=== PATIENT | female | born 1965 | race Caucasian/White ===

== ENCOUNTER → 2016-04-13 | Outpatient (CLI) | payer BC ==
--- NOTE | 2016-04-13 13:08 | DIAGNOSTIC IMAGING REPORT ---
CHEST 2 VIEWS ROUTINE HISTORY: Fever. Cough. COMPARISON: Chest 03/09/2015. FINDINGS: No pleural effusions. No pneumothorax. The heart is normal in size. There is a consolidative opacity within the left lower lobe. This is new from the prior study. The right lung appears clear. IMPRESSION: Left lower lobe consolidation consistent with a pneumonia. Recommend follow-up to resolution. Electronically signed by: Jeremías Mahan M.D. 04/13/2016 1:06 PM Dictated Date/Time: 04/13/2016 1:05 PM
== END | disposition home or self-care (01) ==
LOC: C.RAD1850 12:13
PROVIDERS: ATTEND Family Medicine
DX: J06.9 Acute upper respiratory infection, unspecified (principal); R50.9 Fever, unspecified

== ENCOUNTER → 2017-02-14 | Outpatient (CLI) | payer BC ==
[2017-02-14 09:55] LABS: PREG INTERNAL NEGATIVE QC NEG CLEAR BACKGROUND; PREG INTERNAL POSITIVE QC POS CONTROL LINE
== END | disposition home or self-care (01) ==
LOC: C.LAB1850 08:43
PROVIDERS: ATTEND Physician Assistant
DX: Z30.431 Encounter for routine checking of intrauterine contraceptive device (principal)

== ENCOUNTER 2017-05-02 07:00 | Emergency (ER) | payer BC, OTHER ==
[2017-05-02 07:04] VITALS: TEMP 36.8; Ht 162.6 cm
[2017-05-02] MEDS ORDERED: MoRPHine SULFATE 10 MG/ML CARP/VIAL IM STA (07:20)
[2017-05-02] MEDS ORDERED: ONDANSETRON 4MG OD TAB PO STA (07:21)
--- NOTE | 2017-05-02 08:15 | DIAGNOSTIC IMAGING REPORT ---
L-SPINE MIN 4 VIEWS ROUTINE CLINICAL HISTORY: Low back pain with radicular pain down R leg COMPARISON: Lumbar spine radiographs May 16, 2016. FINDINGS: Cholecystectomy clips are incidentally noted. Alignment of the lumbar spine is anatomic. Vertebral body heights are maintained. There is no fracture or suspicious lesion. There is minimal disc space narrowing at L5-S1. There is mild multilevel osteophytosis. Sacroiliac joints are intact. Intrauterine device is noted. IMPRESSION: 1. No lumbar spine fracture or subluxation. 2. Minimal disc space narrowing at L5-S1 with mild multilevel osteophytosis. Electronically signed by: Turner Weaver M.D. 05/02/2017 8:13 AM Dictated Date/Time: 05/02/2017 7:59 AM
[2017-05-02] MEDS ORDERED: CYCL5TAB PO (08:35)
[2017-05-02] MEDS ORDERED: OXYC1TAB3 PO (08:35)
--- NOTE | 2017-05-02 08:36 | EMERGENCY ROOM VISIT NOTE ---
ED Visit Note First contact with patient: 07:10 CHIEF COMPLAINT: "Back pain". HISTORY OF PRESENT ILLNESS: This 52 year old female patient presents to the emergency department via private vehicle complaining of pain in the low back which began on Tuesday and worse when work up Tuesday and today. The pain was gradual in onset, is now constant and worse with movement. The patient notes the pain as sharp and a 9/10. The patient has taken prednisone and prescribed gabapentin from the walk in relief of the pain. The patient denies any loss of control of their bowel or bladder functions. There has been no leg numbness or weakness, and no change in sensation. No nausea or vomiting or abdominal pain. No chest pain or shortness of breath. The patient has no had prior back injuries. No dysuria or increased urinary frequency. REVIEW OF SYSTEMS: A review of systems was performed with positives and pertinent negatives listed in the history of present illness. All other systems were reviewed and are negative. ALLERGIES: Sulfa MEDICATIONS: Noted below PMH: no pertinent SOCIAL HISTORY: Pt. lives locally with family PHYSICAL EXAM: VITALS: Vitals are noted on the nurse's note and reviewed by myself. Vital signs stable. GENERAL: 52 year old female appearing her stated age, in no acute distress, nondiaphoretic, well-developed well-nourished. SKIN: The skin was without rashes, erythema, edema, or bruising. Capillary refill less than 2 seconds. NECK: Supple without nuchal rigidity. No cervical spine tenderness. No paraspinous muscle tenderness. HEART: Regular rate and rhythm without murmurs gallops or rubs. LUNGS: Clear to auscultation bilaterally without wheezes, rales or rhonchi. ABDOMEN: Positive bowel sounds x 4. Normal tympanic percussion. Soft, nontender, without masses or organomegaly. Mauricio sign negative. MUSCULOSKELETAL: No muscle atrophy, erythema, or edema noted of the back. There is no tenderness over the lumbar spinous processes. There is positive tenderness over the paraspinous muscles in the lumbar spine. Lumbar muscle spasms present. NEURO: Patient was alert and oriented to person place and time. She is neurovascularly intact in the lower extremities. IMAGING: L-SPINE MIN 4 VIEWS ROUTINE CLINICAL HISTORY: Low back pain with radicular pain down R leg COMPARISON: Lumbar spine radiographs May 16, 2016. FINDINGS: Cholecystectomy clips are incidentally noted. Alignment of the lumbar spine is anatomic. Vertebral body heights are maintained. There is no fracture or suspicious lesion. There is minimal disc space narrowing at L5-S1. There is mild multilevel osteophytosis. Sacroiliac joints are intact. Intrauterine device is noted. IMPRESSION: 1. No lumbar spine fracture or subluxation. 2. Minimal disc space narrowing at L5-S1 with mild multilevel osteophytosis. Electronically signed by: Turner Weaver M.D. 05/02/2017 8:13 AM Dictated Date/Time: 05/02/2017 7:59 AM EMERGENCY DEPARTMENT COURSE: Patient was seen and evaluated as above. She presents today with low back pain. She is nontoxic on exam. There is no history of trauma. X-ray was obtained and reveals at L5-S1 there is little bit of narrowing, otherwise negative. I suspect she likely has lumbar strain with radiculopathy. I informed her to stop the gabapentin of which she has had 1 dose of. No cauda equina. She will continue the prednisone, and use a muscle relaxer and pain medication. No red flags in the [place] drug monitoring. In evaluation treatment this patient following differential diagnoses were entertained: Fracture, dislocation, strain, among others. Problem List Surgical Problems: (1) History of cholecystectomy Status: Resolved Current/Historical Medications Scheduled Cyclobenzaprine Hcl (Flexeril), 5 MG PO TID Scheduled PRN Oxycodone Ir (Roxicodone Ir), 1-2 TAB PO Q4H PRN for Pain Allergies Coded Allergies: Sulfa Antibiotics (Unverified Allergy, Intermediate, HIVES, 05/02/17) Vital Signs Date Time Temp Pulse Resp B/P (MAP) Pulse Ox O2 Delivery O2 Flow Rate FiO2 05/02/17 08:50 64 18 137/87 97 05/02/17 07:04 36.8 82 20 142/95 98 Room Air Medications Administered Medications (Trade) Dose Ordered Sig/Monisha Route Start Time Stop Time Status Last Admin Dose Admin Morphine Sulfate (MoRPHine SULFATE INJ) 10 mg NOW STAT IM 05/02/17 07:20 05/02/17 07:21 DC 05/02/17 07:28 10 MG Ondansetron HCl (Zofran Odt) 4 mg NOW STAT PO 05/02/17 07:21 05/02/17 07:22 DC 05/02/17 07:28 4 MG Departure Information Impression Primary Impression: Lumbar radicular pain Dispostion Home / Self-Care Condition GOOD Prescriptions Oxycodone Ir (Roxicodone Ir) 5 Mg Tab 1-2 TAB PO Q4H Y for Pain, #18 TAB For Initial Treatment Prov: Jason Reno PA-C 05/02/17 Cyclobenzaprine Hcl (FLEXERIL) 5 Mg Tab 5 MG PO TID for 7 Days, #21 TAB PRN Prov: Jason Reno PA-C 05/02/17 Referrals Tammie Pulido D.O. (PCP) Patient Instructions My [facility] Additional Instructions You have been treated in the Emergency Department for Back Pain. You have received pain medicine in the emergency department which impairs your ability to operate a vehicle. It is illegal for you to drive after receiving these medicines. You have been prescribed Oyx IR to be used for pain control. This is a narcotic medication. You cannot drive or consume alcohol while on this medicine. This medicine should only be used for pain that cannot be controlled with over-the- counter pain medicines. You have been prescribed Flexeril (cyclobenzaprine) 1-2 tabs orally, three times per day. Do NOT exceed 30 mg (6 tabs) per day. Take your first dose at bedtime as it can make you drowsy. Always take all medications as prescribed. For pain control, you can use the following [id number] medicines (if >12 yo): - Regular strength (325mg/tab) Tylenol (acetaminophen) 2 tabs every 4-6 hours as needed. Do not exceed 12 tablets in a 24 hour period. Avoid taking more than 3 grams (3000 mg) of Tylenol per day. This includes any other sources of acetaminophen you may take on a regular basis. - Regular strength (200 mg/tab) Advil (ibuprofen) 1-2 tabs every 4-6 hours as needed. Do not exceed a dose of 3200 mg per day. If this is an acute injury, ice can be applied to the area of pain for the first 3 days to help decrease pain and inflammation. After the first 3 days, a heating pad can be used over the area for continued soothing relief. You should schedule a follow-up appointment in 2-3 days with your Primary Care Provider for further evaluation and treatment of your back pain. Return to the Emergency Department if your current symptoms worsen despite treatment course outlined above, or if you develop any of the following symptoms : intractable pain despite aforementioned treatment course, loss of control of your bowel or bladder, numbness or tingling in your groin, or development of a fever.
[2017-05-02 08:50] VITALS: BP 137/87; PULSE 64; O2SAT 97
== END 2017-05-02 08:50 | disposition home or self-care (01) ==
LOC: C.EDB 07:01
DX: M54.16 Radiculopathy, lumbar region (principal)

== ENCOUNTER 2017-05-06 15:05 | Emergency (ER) | payer OTHER ==
[~2017-05-06] VITALS: Ht 162.6 cm; Wt 82.0 kg
[~2017-05-06 15:05] MED LIST: CYCL5TAB PO; OXYC1TAB3 PO
[2017-05-06 15:17] VITALS: TEMP 36.7; Ht 162.6 cm; Wt 82.0 kg
[2017-05-06] MEDS ORDERED: OXYCODONE HCL IR 5 MG TAB (IMMEDIATE RELEASE) PO STA (15:38)
--- NOTE | 2017-05-06 17:11 | DIAGNOSTIC IMAGING REPORT ---
LUMBAR SPINE W/O CONTRAST CLINICAL HISTORY: 52 years-old Female presenting with EVAL LOW BACK PAIN, right leg numbness, no history of injury, surgery, or cancer. TECHNIQUE: Multisequence, multiplanar MR imaging of the lumbar spine was performed without the use of intravenous contrast. IV contrast: None. COMPARISON: Correlation made to plain radiographs of the lumbar spine from 05/02/2017. FINDINGS: Localizer images: Unremarkable. Normal lumbar lordosis. Vertebral bodies maintain normal height and alignment. T1 hyperintense, T2 hyperintense, fat-containing lesion in the L2 vertebral body consistent with benign hemangioma. Endplate edema noted at L5-S1 (Modic type I changes) associated with mild disc bulge at L5-S1. No significant abnormal fluid signal intensity within the L5-S1 disc space to suggest discitis. Disc bulge at this level results in mild bilateral neural foraminal narrowing without evidence of mass effect on the exiting L5 nerve roots. However, a slightly greater right paracentral protrusion at this level results in mass effect on the transiting right S1 nerve root. Remainder of the discs demonstrate mild desiccation at L4-5 and L1-2. Minimal disc bulge evident at L1-2 and L2-3 without significant result. No neural foraminal or spinal canal narrowing at any other level besides L5-S1. Spinal cord ends in good position at the inferior endplate of L1. Cauda equina normal in morphology. Paraspinal soft tissues within normal limits. IMPRESSION: 1. Disc bulge with degenerative related endplate edema at L5-S1. Mild bilateral neural foraminal narrowing results. More focal right paracentral disc protrusion at L5-S1 results in mass effect on the transiting right S1 nerve root, which could account for the patient's symptomatology. Electronically signed by: Domingo Christianson M.D. 05/06/2017 5:09 PM Dictated Date/Time: 05/06/2017 5:04 PM
[2017-05-06] MEDS ORDERED: OXYC1TAB3 PO (18:04)
[2017-05-06] MEDS ORDERED: CYCL10TA6 PO (18:04)
[2017-05-06] MEDS ORDERED: METH4PAK PO (18:04)
--- NOTE | 2017-05-06 18:07 | EMERGENCY ROOM VISIT NOTE ---
ED Visit Note First contact with patient: 15:18 CHIEF COMPLAINT: Right-sided back pain radiating to the right leg times one week HISTORY OF PRESENT ILLNESS: Patient is a generally healthy 52-year-old white female who returns to the emergency department for ongoing right low back pain radiating into the right leg. She was seen here 4 days ago for similar complaints. Patient reports that she developed low back pain one week ago. She was seen at the [facility] walk-in clinic on Tuesday the , and was prescribed prednisone and gabapentin. She presented here to the emergency department on Tuesday the with increasing pain. She had lumbar spine x-rays performed which showed some mild disc space narrowing. The gabapentin was discontinued, she was encouraged to finish the course of steroids and was placed on Flexeril and oxycodone for pain. The patient reports that she has been taking the medications as prescribed. She has finished the prednisone. She states that the oxycodone and Flexeril helps slightly with the pain, but mostly sleeping make her tired which does help her to sleep. She has also been using ibuprofen. She has been to the chiropractor 3 times this week. She states that she had some minor adjustment, and was instructed on some exercises, and her pain has improved slightly, however she has subsequently developed numbness in the entire right leg, that extends into the vaginal area, and she reports that she has lost control of her bladder "a couple of times this week." She states that the numbness spares her rectal area , and she has not had any fecal incontinence. She states that while at the chiropractor today and performing the exercises, she had the urge to urinate. Given this, the chiropractor referred her to the emergency department. She denies any dysuria, frequency or urgency. No fever or chills. No abdominal pain. She denies any prior history of back issues. REVIEW OF SYSTEMS: Review of systems as per HPI. All other systems reviewed were negative. 10 systems reviewed. PMH: Electronic medical records are reviewed and summarized as above/below. See Problem List. SOCIAL HISTORY: Patient lives at home with family. She is employed. Nonsmoker. PHYSICAL EXAM: Vital Signs: Reviewed Nurse's notes. CONSTITUTIONAL: Patient is a pleasant, well-appearing 62-year-old white female who is awake and alert and in mild distress due to her stated complaint. There is moderate discomfort with position changes. CARDIOVASCULAR: Regular rate and rhythm, with normal S1 and S2, no murmur or gallop or rub is heard. No carotid bruits auscultated. No JVD. Peripheral pulses easily palpable. RESPIRATORY: Breath sounds equal and clear to auscultation without wheezes, rales, or rhonchi heard. Full and equal chest expansion without accessory muscle use or retractions. ABDOMEN: Bowel sounds are present. Abdomen is soft, nontender and nondistended. INTEGUMENTARY: No lesions or rash, normal skin turgor. LYMPH: No lymphadenopathy. SPINE: Examination of the patient's back does not demonstrate any ecchymosis, abrasions or outward signs of trauma. No erythema, increased warmth or induration. There is no midline discomfort to palpation over the lumbar spinous processes, no paraspinous muscle tenderness or spasm. There is no pain over the SI joint or the sciatic notch. She has increased pain with range of motion including rotation and flexion. EXTREMITIES: Leg lengths are symmetrical. Negative logroll bilaterally. Normal strength including dorsi-flexion and plantar flexion of the great toes and ankles and flexion and extension of the knees and flexion of the hips. Positive right-sided straight leg raise. Lower extremity DTRs are equal and symmetrical bilaterally. Distal pulses are easily palpable. Sensation light touch is diminished over the right lower extremity. EMERGENCY DEPARTMENT COURSE: The patient was seen and evaluated as above. Her old records were reviewed including her lumbar spine x-rays from earlier this week. She was medicated with oxycodone 10 mg orally. Urinalysis was obtained and was unremarkable. Lumbar spine MRI was performed, findings are as noted below. Patient was reviewed with attending physician. I was able to review the patient and her MRI findings with Dr. Sanders, who recommended additional steroids, and gabapentin 300 mg 3 times a day. He will see the patient in follow-up on Tuesday. Treatment plan was discussed with the patient. She had previously been prescribed gabapentin, but reports that she was reluctant to resume this medication and reports that she threw away the prescription that she had been given from the family physician. She is agreeable to additional steroids. She was also provided a prescription for more Flexeril and oxycodone until she can be evaluated by spine surgery. She was educated on the worrisome signs or symptoms for which she should return to the emergency department. She is discharged to home with her driving in good condition. She rated her pain a 3/10 at discharge. MDM: Patient presents to the emergency department for evaluation of right low back pain with radicular symptoms into the right lower leg including numbness. She also does report a few episodes of urinary incontinence, however her exam is not consistent with acute cord compression or cauda equina at this time. She does have a disc herniation involving the S1 nerve root on the right, consistent with her symptoms differential diagnoses also entertained included epidural abscess, hematoma, UTI, pyelonephritis, renal colic, among others. Medication reconciliation: I attest that I have personally reviewed the patient' s current medication list. Blood pressure screening : Patient was found to have normal blood pressure on screening and does not require follow-up. Patient was reviewed in the [facility] Prescription Drug Monitoring Program, and there were no red flags noted. LUMBAR SPINE W/O CONTRAST CLINICAL HISTORY: 52 years-old Female presenting with EVAL LOW BACK PAIN, right leg numbness, no history of injury, surgery, or cancer. TECHNIQUE: Multisequence, multiplanar MR imaging of the lumbar spine was performed without the use of intravenous contrast. IV contrast: None. COMPARISON: Correlation made to plain radiographs of the lumbar spine from 05/02/2017. FINDINGS: Localizer images: Unremarkable. Normal lumbar lordosis. Vertebral bodies maintain normal height and alignment. T1 hyperintense, T2 hyperintense, fat-containing lesion in the L2 vertebral body consistent with benign hemangioma. Endplate edema noted at L5-S1 (Modic type I changes) associated with mild disc bulge at L5-S1. No significant abnormal fluid signal intensity within the L5-S1 disc space to suggest discitis. Disc bulge at this level results in mild bilateral neural foraminal narrowing without evidence of mass effect on the exiting L5 nerve roots. However, a slightly greater right paracentral protrusion at this level results in mass effect on the transiting right S1 nerve root. Remainder of the discs demonstrate mild desiccation at L4-5 and L1-2. Minimal disc bulge evident at L1-2 and L2-3 without significant result. No neural foraminal or spinal canal narrowing at any other level besides L5-S1. Spinal cord ends in good position at the inferior endplate of L1. Cauda equina normal in morphology. Paraspinal soft tissues within normal limits. IMPRESSION: 1. Disc bulge with degenerative related endplate edema at L5-S1. Mild bilateral neural foraminal narrowing results. More focal right paracentral disc protrusion at L5-S1 results in mass effect on the transiting right S1 nerve root, which could account for the patient's symptomatology. Problem List Medical Problems: (1) Acute diverticulitis Status: Resolved (2) Diverticulitis Status: Resolved (3) Lumbar radicular pain Status: Resolved Surgical Problems: (1) History of cholecystectomy Status: Resolved Current/Historical Medications Scheduled Cyclobenzaprine Hcl (Flexeril), 5 MG PO TID Methylprednisolone (Medrol Dosepak), 0 PO DAILY Scheduled PRN Cyclobenzaprine Hcl (Flexeril), 10 MG PO TID PRN for Muscle Spasms Oxycodone Immediate Rel Tab (Roxicodone Ir), 1-2 TAB PO Q4H PRN for Severe Pain Oxycodone Ir (Roxicodone Ir), 1-2 TAB PO Q4H PRN for Pain Allergies Coded Allergies: Sulfa Antibiotics (Unverified Allergy, Intermediate, HIVES, 05/02/17) Vital Signs Date Time Temp Pulse Resp B/P (MAP) Pulse Ox O2 Delivery O2 Flow Rate FiO2 05/06/17 18:18 89 18 141/79 98 05/06/17 17:02 66 16 119/88 96 Room Air 05/06/17 15:17 36.7 79 16 135/80 99 Room Air Laboratory Results Test 05/06/17 16:32 Urine Color YELLOW Urine Appearance CLEAR (CLEAR) Urine pH 5.0 (4.5-7.5) Urine Specific [place] 1.024 (1.000-1.030) Urine Protein NEG (NEG) Urine Glucose (UA) NEG (NEG) Urine Ketones TRACE (NEG) Urine Occult Blood NEG (NEG) Urine Nitrite NEG (NEG) Urine Bilirubin NEG (NEG) Urine Urobilinogen NEG (NEG) Urine Leukocyte Esterase NEG (NEG) Medications Administered Medications (Trade) Dose Ordered Sig/Monisha Route Start Time Stop Time Status Last Admin Dose Admin Oxycodone HCl (Roxicodone Immediate Rel Tab) 10 mg NOW STAT PO 05/06/17 15:38 05/06/17 15:39 DC 05/06/17 15:51 10 MG Departure Information Impression Primary Impression: Lumbar disc herniation with radiculopathy Prescriptions Oxycodone Immediate Rel Tab (ROXICODONE IR) 5 Mg Tab 1-2 TAB PO Q4H Y for Severe Pain, #30 TAB For Initial Treatment Prov: Kayla Saavedra PA 05/06/17 Cyclobenzaprine Hcl (FLEXERIL) 10 Mg Tab 10 MG PO TID Y for Muscle Spasms, #30 TAB Prov: Kayla Saavdera PA 05/06/17 Methylprednisolone (MEDROL DOSEPAK) 4 Mg Chong 0 PO DAILY, #1 PKT Once daily as directed. Prov: Kayla Saavedra PA 05/06/17 Referrals Tammie Pulido,GiovannaOGucci (PCP) Christiano Sanders, DO Patient Instructions My [facility] Additional Instructions DO NOT drive, drink alcohol, operate machinery, or perform dangerous activities today. You were given medications in the ER that can affect your ability to safely function or operate a vehicle. Medrol Dosepak: Once daily until the prescription is finished. It is best to take this earlier in the day as some patients note occasional difficulty falling asleep when taken in the late evening. Oxycodone (OxyIR) 5mg: Take 1-2 pills every four hours for breakthrough pain. Avoid alcohol, operating machinery or dangerous equipment, working on ladders or roofs, DRIVING, or situations where being under the influence may be dangerous. It is recommended to use an cvsx-com-adyddmt stool softener such as Colace, 100mg twice daily while taking this medication to avoid constipation. Cyclobenzaprine (Flexeril) 10 mg: Take 1 pills 3 times daily as needed for muscle spasms.. Avoid alcohol, operating machinery or dangerous equipment, working on ladders or roofs, DRIVING, or situations where being under the influence may be dangerous. Acetaminophen(Tylenol) may be used for fever or pain. Use 1000mg every six hours as needed. Avoid using more than 3000mg in a 24 hour period. This medication can be taken if you need to drive, work, or perform activities which may be dangerous when taking narcotic pain medication. Rest and avoid heavy lifting or strenuous activities until seen by Dr. Sanders. Continue current medications. Return to the ER immediately for any numbness, tingling, severe pain, loss of control of your bowels or bladder, inability to walk, or as needed. Follow up with Dr. Sanders on Tuesday, 05/09 at 10am. Please call his office to reschedule if you are unable to make this appointment.
[2017-05-06 18:18] VITALS: BP 141/79; PULSE 89; O2SAT 98
== END 2017-05-06 18:20 | disposition home or self-care (01) ==
LOC: C.EDB 15:07 → C.EDA 18:20
DX: M51.16 Intervertebral disc disorders with radiculopathy, lumbar region (principal)

== ENCOUNTER → 2017-05-13 | Day surgery (SDC) | payer OTHER ==
[2017-05-11 10:52] VITALS: Ht 162.6 cm; Wt 81.8 kg
[~2017-05-13] VITALS: Ht 162.6 cm; Wt 81.8 kg
[~2017-05-13] MED LIST changes: -CYCL5TAB PO; +DEXAMETHASONE SOD INJ 4 MG/ML VIAL ONE; +DICL-201 PO; +LIDOCAINE HCL 1% MPF 5 ML VIAL ONE; +METH1TAB81 PO
--- NOTE | 2017-05-13 07:44 | History & Physical Bridge - [place] ---
H&P Re-Evaluation Bridge Note: I have examined the patient, reviewed the History & Physical and in the interval since the performance of the History & Physical I have noted the following changes of clinical significance: No changes noted
--- NOTE | 2017-05-13 07:57 | [facility] Post Operative Brief Note ---
Immediate Operative Summary Operative Date May 13, 2017. Pre-Operative Diagnosis Disc herniation L5-S1 Post-Operative Diagnosis Same Procedure(s) Performed L5-S1 Epidural Steroid Injection Surgeon Dr. Jay Sanders Box Office Agent Surgeon(s) None Estimated Blood Loss 0 Findings Consistent with Post-Op Diagnosis Specimens none Anesthesia Type Local Disposition Accompanied Pt To Recover:
--- NOTE | 2017-05-13 07:58 | Discharge Instructions-SurgCtr ---
Discharge Instructions Date of Service May 13, 2017. Visit Reason for Visit: Disc Herniation Discharge Discharge Diagnosis / Problem: same Discharge Goals Goal(s): Improve function Activity Recommendations Activity Limitations: as noted below Lifting Limitations: gradually increase as tolerated Anesthesia . Post Anesthesia Instructions: If you have had General Anesthesia or IV Sedation: * Do not drive today. * Resume driving when surgeon permits. * Do not make important decisions or sign legal documents today. * Call surgeon for: 1. Temperature elevations greater than 101 degrees F. 2. Uncontrollable pain. 3. Excessive bleeding. 4. Persistent nausea and vomiting. 5. Medication intolerance (nausea, vomiting or rash). * For nausea and vomiting use only clear liquids such as: tea, soda, bouillon until nausea subsides, then gradually increase diet as tolerated. * If you have any concerns or questions, call your surgeon's office. If physician is unavailable and it is an emergency, call 911 or go to the nearest emergency room. . Diet Recommendations Home Diet: no limitations Procedures Procedures Performed: L5-S1 Epidural Steroid Injection Pending Studies Studies pending at discharge: no Medical Emergencies . Who to Call and When: Medical Emergencies: If at any time you feel your situation is an emergency, please call 911 immediately. . Non-Emergent Contact Non-Emergency issues call your: Primary Care Provider . . "Provider Documentation" section prepared by Christiano Sanders. .
--- NOTE | 2017-05-13 08:06 | OPERATIVE REPORT ---
DATE OF OPERATION: 05/13/2017 PREOPERATIVE DIAGNOSIS: Disc herniation, lumbar spine L5-S1. POSTOPERATIVE DIAGNOSIS: Same. PROCEDURE: Epidural steroid injection L5-S1. DESCRIPTION OF PROCEDURE: The patient was taken to the minor procedure room [facility], placed prone, prepped and draped sterile. I anesthetized the skin with 1% Xylocaine. I advanced the 22 gauge Tuohy needle to the epidural space at L5-S1. 2 mL of dexamethasone injected without incident. The patient tolerated it well. The patient returned to PACU stable. No complications. No blood loss. I attest to the content of the Intraoperative Record and any orders documented therein. Any exception s are noted below.
[2017-05-13 08:19] VITALS: BP 124/82; PULSE 76; TEMP 36.6; O2SAT 98
== END | disposition home or self-care (01) ==
LOC: X.SURG 06:37
PROVIDERS: ATTEND Orthopaedic Surgery Orthopaedic Surgery of the Spine
DX: M51.27 Other intervertebral disc displacement, lumbosacral region (principal); Z90.49 Acquired absence of other specified parts of digestive tract; Z85.828 Personal history of other malignant neoplasm of skin; Z82.49 Family history of ischemic heart disease and other diseases of the circulatory system; Z83.3 Family history of diabetes mellitus; Z82.3 Family history of stroke

== ENCOUNTER → 2017-06-28 | Day surgery (SDC) | payer OTHER ==
[2017-06-16 13:33] VITALS: Ht 162.6 cm; Wt 81.8 kg
[~2017-06-28] VITALS: Ht 162.6 cm; Wt 81.8 kg
[~2017-06-28] MED LIST changes: -DICL-201 PO; -METH1TAB81 PO; -OXYC1TAB3 PO
[2017-06-28 07:38] VITALS: BP 144/99; PULSE 72; TEMP 36.2; O2SAT 97
--- NOTE | 2017-06-28 07:38 | [facility] Post Operative Brief Note ---
Immediate Operative Summary Operative Date Jun 28, 2017. Pre-Operative Diagnosis DISC HERNIATION L5-S1 Post-Operative Diagnosis SAME Procedure(s) Performed L5-S1 EPIDURAL STEROID INJECTION Surgeon Dr Christiano Sanders Alterations Expert Surgeon(s) None Estimated Blood Loss 0 Findings Consistent with Post-Op Diagnosis Specimens 0 Drains None Anesthesia Type Local Complication(s) none
--- NOTE | 2017-06-28 07:39 | Discharge Instructions-SurgCtr ---
Discharge Instructions Date of Service Jun 28, 2017. Visit Reason for Visit: Disc Herniation With Myelopathy Discharge Discharge Diagnosis / Problem: same Discharge Goals Goal(s): Improve function Activity Recommendations Activity Limitations: resume your previous activity take it easy today Anesthesia . Post Anesthesia Instructions: If you have had General Anesthesia or IV Sedation: * Do not drive today. * Resume driving when surgeon permits. * Do not make important decisions or sign legal documents today. * Call surgeon for: 1. Temperature elevations greater than 101 degrees F. 2. Uncontrollable pain. 3. Excessive bleeding. 4. Persistent nausea and vomiting. 5. Medication intolerance (nausea, vomiting or rash). * For nausea and vomiting use only clear liquids such as: tea, soda, bouillon until nausea subsides, then gradually increase diet as tolerated. * If you have any concerns or questions, call your surgeon's office. If physician is unavailable and it is an emergency, call 911 or go to the nearest emergency room. . Diet Recommendations Home Diet: no limitations Procedures Procedures Performed: L5-S1 EPIDURAL STEROID INJECTION Pending Studies Studies pending at discharge: no Medical Emergencies . Who to Call and When: Medical Emergencies: If at any time you feel your situation is an emergency, please call 911 immediately. . Non-Emergent Contact Non-Emergency issues call your: Primary Care Provider . . "Provider Documentation" section prepared by Christiano Sanders. .
--- NOTE | 2017-06-28 07:48 | OPERATIVE REPORT ---
DATE OF OPERATION: 06/28/2017 PREOPERATIVE DIAGNOSIS: Lumbar spine disc herniation. POSTOPERATIVE DIAGNOSIS: Same. PROCEDURE: Included epidural steroid injection, lumbar spine. PROVIDER: Dr. Sanders. COMPLICATIONS: Zero. BLOOD LOSS: Zero. DESCRIPTION OF PROCEDURE: The patient was taken to the minor procedure room at [facility] surgical center. Placed prone, scrubbed, prepped and draped sterile. I advanced a 22-gauge Tuohy spinal needle to the epidural space at L5-S1. Air acceptance technique employed. 2 mL of dexamethasone injected without incident. There were no complications. She was returned to recovery room satisfactory and stable. I attest to the content of the Intraoperative Record and any orders documented therein. Any exception s are noted below.
== END | disposition home or self-care (01) ==
LOC: X.SURG 06:29
PROVIDERS: ATTEND Orthopaedic Surgery Orthopaedic Surgery of the Spine
DX: M51.26 Other intervertebral disc displacement, lumbar region (principal)